=== PATIENT | female | born 1995 | race Caucasian/White ===

== ENCOUNTER → 2016-11-14 | Outpatient (CLI) | payer BC ==
--- NOTE | 2016-11-14 09:33 | DX ---
Right knee 3 Views History: Running on treadmill and landed on wrong 3 weeks ago, lateral pain and stiffness. Comparison: None available. Findings: No fracture is identified. Alignment is normal. Bone mineralization is normal. There is no significant degenerative change. There is no joint effusion. Impression: No acute osseous findings.
== END ==
LOC: BMCIMAGING 09:04
PROVIDERS: ATTEND Family Medicine
DX: M25.561 Pain in right knee (principal); X50.0XXA Overexertion from strenuous movement or load, initial encounter; Y93.02 Activity, running